=== PATIENT | male | born 1995 | race Caucasian/White ===

== ENCOUNTER 2016-04-01 14:18 | Emergency (ER) | payer OTHER ==
--- NOTE | 2016-04-01 15:35 | EDPHY ---
H & P Time Seen by Provider: 04/01/16 14:45 HPI/ROS: CHIEF COMPLAINT: I fell down some stairs, "I am mentally a mess" HISTORY OF PRESENT ILLNESS: Patient is a 20-year-old male with a previous history of anxiety who presents emergency department after falling down some stairs on . The patient states he had a clumsy accident. He tripped down 15 stairs. He struck his head on the left frontal region. Reports loss of consciousness. Since that time he has had mild frontal headache. No neck pain. No nausea or vomiting. The patient also complains of mild bilateral knee pain. This is slightly worse with movement. He is able to ambulate without difficulty. The patient also complains of left wrist stiffness. The patient reports drinking alcohol regularly. He smokes cigarettes. Uses marijuana regularly. Patient states he has felt very scared. He is not able to eat or drink because of his fever. He has a history of anxiety but this is much worse. He denies suicidal ideation. REVIEW OF SYSTEMS: My complete review of systems is negative except as mentioned in the HPI. Past Medical/Surgical History: Includes anxiety Past surgical history: Negative Social History: Patient is smokes marijuana regularly. He smokes cigarettes. He uses alcohol regularly. Smoking Status: Current every day smoker Physical Exam: Vitals noted GENERAL: No acute distress, alert. HEAD: No evidence of trauma. No noted hematoma. No frontal tenderness palpation. EYES: PERRLA, EOMI, normal to inspection. ENT: Airway intact, no dental or oral injury, no malocclusion, no hemotympanum , normal external examination. NECK: The trachea is midline. There is no crepitus. The C-spine is nontender. NEXUS criteria is negative (no midline tenderness, no distracting injury, no altered mental status, no recent alcohol use, no focal neurologic deficit). RESPIRATORY: Clear to auscultation bilaterally, no rales, rhonchi or wheezing. There is no crepitus or palpable rib fractures. CVS: Regular rate and rhythm, no rubs, murmurs, or gallops. ABDOMEN: Soft, nontender, nondistended, normal bowel sounds, no bruising or abrasions. Pelvis: Stable. No tenderness palpation. Hips full range of motion. BACK: Normal to inspection, no spinal tenderness, no spinal step off, no notable bruising or abrasions. SKIN: Normal color, warm, dry. No pallor or diaphoresis. EXTREMITIES: Right upper extremity: Patient has a small blister on dorsal aspect of his webspace between his thumb and index finger. This appears to be healing well. There is no significant redness, tenderness or streaking up the arm.. No other visible signs of trauma. No tenderness palpation. Neurovascular intact distally. Left upper extremity: Atraumatic appearing. No bony tenderness palpation. No visible signs of trauma. Neurovascular intact distally. Right lower extremity: Atraumatic appearing. No visible signs of trauma. No tenderness palpation. Neurovascular intact distally. Left lower extremity: Atraumatic appearing. No visible signs of trauma. No tenderness palpation. Neurovascular intact distally. Atraumatic, neurovascularly intact distally in all extremities, pelvis is stable , hips with full range of motion, moves all extremities freely. NEURO/PSYCH: Alert and oriented x 3, GCS 15, anxious and tearful, normal motor sensory exam. Constitutional: Initial Vital Signs Temperature (C) 36.0 C 04/01/16 14:28 Heart Rate 82 04/01/16 14:28 Respiratory Rate 16 04/01/16 14:28 Blood Pressure 130/68 H 04/01/16 14:28 O2 Sat (%) 95 04/01/16 14:28 O2 Delivery Mode Room Air Allergies/Adverse Reactions: No Known Allergies Allergy (Unverified 04/01/16 14:28) Home Medications: Medication Instructions Recorded NK [No Known Home Meds] 04/01/16 Medical Decision Making ED Course/Re-evaluation: In the emergency department I discussed possible etiologies with the patient. I discussed closed-head injury. The patient consented to CT imaging. Laboratory studies were obtained for psychiatric evaluation. Patient has full range of motion of his knees and is able to ambulate. He has negative [place] knee rules. I do not feel he needs imaging of his knees. Patient's left wrist is nontender to palpation. I do not feel he needs imaging of his left wrist. 16 10: Head CT: No acute disease. Please refer the dictated report by Dr. Vadim Zavala. I reviewed the patient's laboratory studies. CBC and chemistry panel unremarkable. Patient does have positive urine tox: THC, cocaine, benzodiazepine I discussed the results with the patient. I answered all his questions. Patient is awaiting mental health evaluation. The patient had evaluation. They felt he is safe for discharge. He was given follow-up information. He was given warnings prior to leaving. He will return with worsening symptoms. I discussed possibility of cocaine use exacerbating his anxiety. I spoke with Psych[facility]. After their evaluation they felt the patient was safe for discharge. The mother and patient agrees with this plan. I discussed the plan with the patient. I answered all her questions. He was given warnings prior to leaving. He will return with worsening symptoms. Differential Diagnosis: Differential includes but is not limited to closed-head injury, subarachnoid hemorrhage, subdural hematoma, epidural hematoma, concussion, spinal injury, anxiety, depression, drug abuse, alcohol abuse - Data Points Laboratory Results: Laboratory Results 04/01/16 15:30 04/01/16 15:30 04/01/16 04/01/16 15:40 15:30 WBC 6.50 10^3/uL (3.80-9.50) RBC 5.26 10^6/uL (4.40-6.38) Hgb 16.1 g/dL (13.7-17.5) Hct 47.4 % (40.0-51.0) MCV 90.1 fL (81.5-99.8) MCH 30.6 pg (27.9-34.1) MCHC 34.0 g/dL (32.4-36.7) RDW 12.0 % (11.5-15.2) Plt Count 304 10^3/uL (150-400) MPV 10.5 fL (8.7-11.7) Neut % (Auto) 63.3 % (39.3-74.2) Lymph % (Auto) 22.8 % (15.0-45.0) [place] % (Auto) 9.7 % (4.5-13.0) Eos % (Auto) 2.5 % (0.6-7.6) Baso % (Auto) 1.4 % (0.3-1.7) Nucleat RBC Rel Count 0.0 % (0.0-0.2) Absolute Neuts (auto) 4.12 10^3/uL (1.70-6.50) Absolute Lymphs (auto) 1.48 10^3/uL (1.00-3.00) Absolute Monos (auto) 0.63 10^3/uL (0.30-0.80) Absolute Eos (auto) 0.16 10^3/uL (0.03-0.40) Absolute Basos (auto) 0.09 10^3/uL (0.02-0.10) Absolute Nucleated RBC 0.00 10^3/uL (0-0.01) Immature Gran % 0.3 % (0.0-1.1) Immature Gran # 0.02 10^3/uL (0.00-0.10) Sodium 142 mEq/L (134-144) Potassium 4.5 mEq/L (3.5-5.2) Chloride 100 mEq/L (97-110) Carbon Dioxide 28 mEq/l (22-31) Anion Gap 14 mEq/L (8-16) BUN 16 mg/dL (7-23) Creatinine 0.9 mg/dL (0.7-1.3) Estimated GFR > 60 Glucose 92 mg/dL (70-100) Calcium 10.1 mg/dL (8.5-10.4) Urine Opiates Screen NEGATIVE (NEGATIVE) Urine Barbiturates NEGATIVE (NEGATIVE) Ur Phencyclidine Scrn NEGATIVE (NEGATIVE) Ur Amphetamine Screen NEGATIVE (NEGATIVE) U Benzodiazepines Scrn NON-NEGATIVE H (NEGATIVE) Urine Cocaine Screen NON-NEGATIVE H (NEGATIVE) U Marijuana (THC) Screen NON-NEGATIVE H (NEGATIVE) Ethyl Alcohol < 10 mg/dL (0-10) Medications Given: Discontinued Medications Lorazepam (Ativan Injection) 1 mg IVP EDNOW ONE Stop: 04/01/16 16:20 Last Admin: 04/01/16 16:20 Dose: 1 mg Departure - Departure Disposition: Home, Routine, Self-Care Clinical Impression: Anxiety Closed head injury Qualifiers: Encounter type: initial encounter Qualifier Code: (S09.90XA) Unspecified injury of head, initial encounter Condition: Good Instructions: Anxiety (ED), Head Injury (ED) Additional Instructions: Return with increasing symptoms or any other concerns. Referrals: [facility] [Outside] - 2-3 days, call for appt.
[2016-04-01 15:48] LABS: % IMMATURE GRANULYOCYTES 0.3 % (0.0-1.1); ABSOLUTE IMMATURE GRANULOCYTES 0.02 10^3/uL (0.00-0.10); ADD DIFF? NO; ADD MORPH? NO; ADD SCAN? NO; ATYPICAL LYMPHOCYTE FLAG 0 (0-99); FRAGMENT RBC FLAG 0 (0-99); HEMATOCRIT 47.4 % (40.0-51.0); HEMOGLOBIN 16.1 g/dL (13.7-17.5); LEFT SHIFT FLG 0 (0-99); LIPEMIA HEMOLYSIS FLAG 90 (0-99); MEAN CELL HEMOGLOBIN 30.6 pg (27.9-34.1); MEAN CELL VOLUME 90.1 fL (81.5-99.8); MEAN PLATELET VOLUME 10.5 fL (8.7-11.7); PLATELET CLUMPS FLAG 0 (0-99); PLATELET COUNT 304 10^3/uL (150-400); RED BLOOD CELL COUNT 5.26 10^6/uL (4.40-6.38)
[2016-04-01 16:05] LABS: ANION GAP 14 mEq/L (8-16); CALCIUM 10.1 mg/dL (8.5-10.4); CARBON DIOXIDE 28 mEq/l (22-31); CHLORIDE 100 mEq/L (97-110); CREATININE 0.9 mg/dL (0.7-1.3); ETHANOL SERUM < 10 mg/dL (0-10); GLOMERULAR FILTRATION RATE > 60; GLUCOSE 92 mg/dL (70-100); POTASSIUM 4.5 mEq/L (3.5-5.2); SODIUM 142 mEq/L (134-144)
[2016-04-01] MEDS ORDERED: LORazepam 2 MG/ML INJ ONE (16:07)
--- NOTE | 2016-04-01 16:12 | CT ---
CT Head Without Contrast History: Fall down stairs, struck right for head, loss of consciousness. Comparison: None available. Technique: Axial unenhanced images were obtained from the vertex through the skull base. Dose reducti on techniques were utilized. Findings: Mild right forehead soft tissue swelling is present. Matute-white differentiation is preserve d. The ventricles and sulci are normal. No intracranial hemorrhage is identified. No extraaxial fl uid collections are identified. There is no mass effect or evidence of infarct. The skull and skull base are unremarkable. The visible paranasal sinuses and mastoid air cells are normally aerated. Impression: No acute intracranial findings. Findings discussed with Parisa Aguilar today at 1609 hours.
[2016-04-01] MEDS ORDERED: LORazepam 2 MG/ML INJ IVP ONE (16:19)
[2016-04-01 16:21] VITALS: TEMP 98.6
[2016-04-01 18:30] VITALS: O2SAT 95
[2016-04-01 19:40] VITALS: BP 132/90; PULSE 69; RESP 16
== END 2016-04-01 19:40 | disposition home or self-care (01) ==
DX: S09.90XA Unspecified injury of head, initial encounter (principal); F41.9 Anxiety disorder, unspecified; F17.210 Nicotine dependence, cigarettes, uncomplicated; W10.8XXA Fall (on) (from) other stairs and steps, initial encounter
CPT/HCPCS: 80305; 96374; G0480

== ENCOUNTER 2017-02-04 10:52 | Emergency (ER) | payer OTHER ==
[2017-02-04] MEDS ORDERED: NS 1,000 ML IV ONE (11:01)
--- NOTE | 2017-02-04 11:05 | CPEKG ---
Heart Rate: 122 RR Interval: 492 P-R Interval: 136 QRSD Interval: 94 QT Interval: 332 QTC Interval: 473 P [place]: 70 QRS [place]: 97 T Wave [place]: -21 EKG Severity - ABNORMAL ECG - EKG Impression: SINUS TACHYCARDIA EKG Impression: PROBABLE LEFT ATRIAL ABNORMALITY EKG Impression: BORDERLINE RIGHT AXIS DEVIATION EKG Impression: ABNORMAL T, CONSIDER ISCHEMIA, INFERIOR LEADS EKG Impression: BORDERLINE PROLONGED QT INTERVAL Electronically Signed By: Jason Arango 04-Feb-2017 11:09:23
[2017-02-04 11:06] LABS: % IMMATURE GRANULYOCYTES 0.5 % (0.0-1.1); ABSOLUTE IMMATURE GRANULOCYTES 0.05 10^3/uL (0.00-0.10); ADD DIFF? NO; ADD MORPH? NO; ADD SCAN? NO; ATYPICAL LYMPHOCYTE FLAG 10 (0-99); FRAGMENT RBC FLAG 0 (0-99); HEMATOCRIT 41.8 % (40.0-51.0); LEFT SHIFT FLG 0 (0-99); LIPEMIA HEMOLYSIS FLAG 90 (0-99); MEAN CELL HEMOGLOBIN 31.8 pg (27.9-34.1); MEAN CELL HEMOGLOBIN CONCENTR. 35.9 g/dL (32.4-36.7); MEAN CELL VOLUME 88.6 fL (81.5-99.8); MEAN PLATELET VOLUME 10.6 fL (8.7-11.7); PLATELET CLUMPS FLAG 10 (0-99); PLATELET COUNT 405 10^3/uL (150-400); RED BLOOD CELL COUNT 4.72 10^6/uL (4.40-6.38); RED CELL DISTRIBUTION WIDTH 11.9 % (11.5-15.2)
[2017-02-04 11:13] LABS: ANION GAP 25 mEq/L (8-16); CALCIUM 9.9 mg/dL (8.5-10.4); CARBON DIOXIDE 19 mEq/l (22-31); CHLORIDE 104 mEq/L (97-110); CREATININE 1.1 mg/dL (0.7-1.3); GLOMERULAR FILTRATION RATE > 60; GLUCOSE 113 mg/dL (70-100); POTASSIUM 4.3 mEq/L (3.5-5.2); SALICYLATE < 1.0 mg/dL (2.0-20.0); SODIUM 148 mEq/L (134-144)
[2017-02-04 11:26] LABS: ETHANOL SERUM 352 mg/dL (0-10)
--- NOTE | 2017-02-04 11:48 | EDPHY ---
General - History Smoking Status: Current every day smoker Narrative: CHIEF COMPLAINT: Medical clearance for present HISTORY OF PRESENT ILLNESS: Patient presents by EMS and [employer]. They report that the patient is here for medical clearance. [employer] reports that the patient was allegedly walking in to strangers homes, thus they were contacted. He was taken into custody but appeared to be altered to them, thus EMS was activated. EMS notes that the patient was confused and altered. He was tachycardic but had no specific organic complaints. The patient has no complaints other than feeling that he "is being singled out and not treated right." He denies any headache, chest pain or back pain. He denies any cough or abdominal pain. He denies any drug use. He does admit to alcohol use to EMS. He will not provide any other associated complaints or modifying factors. There is an odor of alcohol about him REVIEW OF SYSTEMS: Ten systems reviewed and are negative unless otherwise noted in the HPI PCP: Unable to obtain from patient SPECIALISTS: Unable to obtain from patient PAST MEDICAL HISTORY: Unable to obtain from patient PAST SURGICAL HISTORY: Unable to obtain from patient SOCIAL HISTORY: Unable to obtain from patient FAMILY HISTORY: Unable to obtain from patient EXAMINATION General Appearance: Alert, no distress Head: normocephalic, atraumatic. No Carmichael sign. No outward signs of trauma Eyes: Pupils equal and round, no conjunctival pallor or injection. No nystagmus ENT, Mouth: Mucous membranes moist. Airway patent Neck: Normal inspection, supple, non-tender Respiratory: Lungs are clear to auscultation. No wheezing, rhonchi or crackles Cardiovascular: Tachycardic rate. Regular rhythm. Gastrointestinal: Abdomen is soft and nontender Back: non-tender, no bony abnormalities Neurological: Alert to person. Disoriented to place and time. Disoriented to scenario. No pronator drift. Strength is symmetric in lower extremities. Skin: Warm and dry, no rash Extremities: Nontender, no pedal edema Psychiatric: Flight of ideas. Denies suicidal or homicidal ideation DIFFERENTIAL DIAGNOSES: Including but not limited to acute psychosis, acute alcohol intoxication, substance abuse MDM: 11:12 a.m. Altered mental status of uncertain etiology. Patient's presentation and history are suspicious for drug use, likely methamphetamine and/or alcohol. He is in no acute distress with mild tachycardia without ischemia. I discussed the case with Dr. Arango. I have placed him on a detained or due to being capable of making medical decisions from altered mentation. 12:00 p.m. Serum alcohol level is 352. Toxicology pending 12:30 p.m. Urine drug screen positive for cocaine and marijuana. At the patient's request , I have talked his mother. The mother informs me that he does in fact living window. He also attends school in [place] the [employer]. She says that he is here visiting. She says that he left last evening to come up to [place] did visit with some friends. She is soon that he was still with friends. It appears the patient is simply intoxicated and under the influence of cocaine. He is in no acute distress. He is very tearful. The mother will come to the emergency department. 2:12 p.m. Mother is now at bedside. I have discussed and re-evaluated the patient. He still intermittently thinks he is in [place]. At the same time, he recognizes that he must be in [place] because he knows that his parents live here. With his permission we discussed the laboratory studies and urinalysis findings. Mother is aware of this and is comfortable with taking the patient home if she feels the we have cleared him medically. I will discuss with Dr. Arango. 2:[address] Arango and I are in agreement that patient is stable for discharge home. Suspect cocaine delirium and/or acute alcohol intoxication both contributing to his symptoms. He has improved since time arrival. I do feel he will continue it is so. I discussed this with the mother and she is comfortable with taking the patient home in [place] with him. We discussed return to the emergency department should his symptoms worsen or not improve. She is comfortable with this plan and he is discharged in stable condition. At time of discharge he is alert to person, place and time. (Darryl Yousif) Procedures: 12-lead EKG interpreted by me; official reading is in trace master. My interpretation is sinus tachycardia rate 122 with left atrial abnormality. Probable rate-related T-wave abnormalities. (Jason Arango) - Objective Vital Signs: Initial Vital Signs Temperature (C) 98.4 F 02/04/17 10:52 Heart Rate 137 H 02/04/17 10:52 Respiratory Rate 22 H 02/04/17 10:52 Blood Pressure 130/80 H 02/04/17 10:52 O2 Sat (%) 97 02/04/17 10:52 O2 Delivery Mode Room Air Allergies/Adverse Reactions: No Known Allergies Allergy (Verified 02/04/17 11:02) Home Medications: Medication Instructions Recorded Ondansetron Odt [Zofran Odt 4 mg 4 mg PO Q6 PRN #11 tab 02/04/17 (*)] Laboratory Results: Laboratory Results 02/04/17 10:56 02/04/17 10:56 02/04/17 02/04/17 02/04/17 11:50 10:56 10:56 WBC 10.43 10^3/uL H 10^3/uL (3.80-9.50) RBC 4.72 10^6/uL 10^6/uL (4.40-6.38) Hgb 15.0 g/dL g/dL (13.7-17.5) Hct 41.8 % % (40.0-51.0) MCV 88.6 fL fL (81.5-99.8) MCH 31.8 pg pg (27.9-34.1) MCHC 35.9 g/dL g/dL (32.4-36.7) RDW 11.9 % % (11.5-15.2) Plt Count 405 10^3/uL H 10^3/uL (150-400) MPV 10.6 fL fL (8.7-11.7) Neut % (Auto) 62.5 % % (39.3-74.2) Lymph % (Auto) 28.5 % % (15.0-45.0) [place] % (Auto) 7.1 % % (4.5-13.0) Eos % (Auto) 0.1 % L % (0.6-7.6) Baso % (Auto) 1.3 % % (0.3-1.7) Nucleat RBC Rel Count 0.0 % % (0.0-0.2) Absolute Neuts (auto) 6.52 10^3/uL H 10^3/uL (1.70-6.50) Absolute Lymphs (auto) 2.97 10^3/uL 10^3/uL (1.00-3.00) Absolute Monos (auto) 0.74 10^3/uL 10^3/uL (0.30-0.80) Absolute Eos (auto) 0.01 10^3/uL L 10^3/uL (0.03-0.40) Absolute Basos (auto) 0.14 10^3/uL H 10^3/uL (0.02-0.10) Absolute Nucleated RBC 0.00 10^3/uL 10^3/uL (0-0.01) Immature Gran % 0.5 % % (0.0-1.1) Immature Gran # 0.05 10^3/uL 10^3/uL (0.00-0.10) Sodium 148 mEq/L H mEq/L (134-144) Potassium 4.3 mEq/L mEq/L (3.5-5.2) Chloride 104 mEq/L mEq/L (97-110) Carbon Dioxide 19 mEq/l L mEq/l (22-31) Anion Gap 25 mEq/L H mEq/L (8-16) BUN 12 mg/dL mg/dL (7-23) Creatinine 1.1 mg/dL mg/dL (0.7-1.3) Estimated GFR > 60 Glucose 113 mg/dL H mg/dL (70-100) Calcium 9.9 mg/dL mg/dL (8.5-10.4) Salicylates < 1.0 mg/dL L mg/dL (2.0-20.0) Urine Opiates Screen NEGATIVE (NEGATIVE) Acetaminophen < 10 mcg/mL L mcg/mL (10-30) Urine Barbiturates NEGATIVE (NEGATIVE) Ur Phencyclidine Scrn NEGATIVE (NEGATIVE) Ur Amphetamine Screen NEGATIVE (NEGATIVE) U Benzodiazepines Scrn NEGATIVE (NEGATIVE) Urine Cocaine Screen NON-NEGATIVE H (NEGATIVE) U Marijuana (THC) Screen NON-NEGATIVE H (NEGATIVE) Ethyl Alcohol 352 mg/dL H mg/dL (0-10) Medications Given: Discontinued Medications Sodium Chloride (Ns) 1,000 mls @ 0 mls/hr IV EDNOW ONE; Wide Open PRN Reason: Protocol Stop: 02/04/17 11:02 Last Admin: 02/04/17 11:11 Dose: 1,000 mls Departure - Departure Disposition: Home, Routine, Self-Care Clinical Impression: Use of cannabis, Cocaine intoxication delirium Acute alcohol intoxication Qualifiers: Complication of substance-induced condition: with unspecified complication Qualified Code(s): F10.929 - Alcohol use, unspecified with intoxication, unspecified Condition: Good Instructions: Cocaine Abuse (ED), Acute Delirium (ED) Additional Instructions: 1. Zofran as prescribed as needed 2. Increase fluid intake throughout the day 3. ED precautions as discussed 4. Follow up with primary care physician upon return back to [place] Referrals: Jennifer Bejarano MD [Medical Doctor] - As per Instructions Prescriptions: Ondansetron Odt [Zofran Odt 4 mg (*)] 4 mg PO Q6 PRN #11 tab PRN Reason: Nausea/Vomiting, Use 1st
[2017-02-04 14:21] VITALS: BP 128/67; PULSE 102; RESP 20; TEMP 97.9; O2SAT 96
--- NOTE | 2017-02-04 16:49 | ASDISCHSUM ---
Discharge Information Plan Status:Home with No Needs Medically Cleared to Leave: Discharge Date:02/04/2017 02:24 PM CM D/C Disposition:Home, Routine, Self-Care ADT D/C Disposition:Home, Routine, Self-Care Projected Discharge Date:02/04/2017 02:24 PM Transportation at D/C:Family Discharge Delay Reason: Follow-Up Date:02/04/2017 02:24 PM Discharge Slot: Final Diagnosis: Placement Information Patient Contact Information Contact Name:RAMIN Relationship:Mother Address:[address] Work Phone: City:[facility] Phone: [facility]/Zip Code:[place] [address] Email: Financial Information Financial Class:HMO and PPO Plans Primary Plan Desc: KIM MANNING Primary Plan Number:[id number] Secondary Plan Desc: Secondary Plan Number: Assessment Information Intervention Information
== END 2017-02-04 14:24 | disposition home or self-care (01) ==
LOC: EDUNIT#
DX: F10.929 Alcohol use, unspecified with intoxication, unspecified (principal); F12.90 Cannabis use, unspecified, uncomplicated; F14.221 Cocaine dependence with intoxication delirium; E86.9 Volume depletion, unspecified; F17.200 Nicotine dependence, unspecified, uncomplicated
CPT/HCPCS: 80305; G0480